=== PATIENT | male | born 1985 | race Caucasian/White ===

== ENCOUNTER 2021-02-13 19:37 | Emergency (ER) | payer BC ==
--- NOTE | 2021-02-13 19:40 | ED General ---
General Stated Complaint: LIGHTHEADED,DIARRHEA History of Present Illness Date Seen by Provider: Feb 13, 2021 Time Seen by Provider: 19:40 Initial Comments 36-year-old male presents because he thinks he might be dehydrated. Patient reports that every time he takes something and he has loose stools. Patient feels little lightheaded. Patient tested positive for Covid on 02/06/2021. He has had symptoms for about 9 or 10 days. Patient denies any fevers chills nausea vomiting shortness of breath or any other systemic complaints. Allergies and Home Medications Allergies Coded Allergies: No Known Drug Allergies (Unverified , 02/13/21) Patient Home Medication List Home Medication List Reviewed: Yes Review of Systems Review of Systems Constitutional: No chills, No fever Respiratory: No cough, No short of breath Cardiovascular: No chest pain, No palpitations Gastrointestinal: No abdominal pain; diarrhea; No nausea, No vomiting Musculoskeletal: no symptoms reported Skin: no symptoms reported Psychiatric/Neurological: See HPI Physical Exam Vital Signs Vital Signs - First Documented 02/13/21 19:45 Temp 36.7 Pulse 78 Resp 18 B/P (MAP) 138/82 (100) Pulse Ox 99 O2 Delivery Room Air Capillary Refill : Height, Weight, BMI Height: '" Weight: lbs. oz. kg; BMI Method: General Appearance: No Apparent Distress HEENT: PERRL/EOMI Neck: Normal Inspection, Non Tender Respiratory: Lungs Clear, Normal Breath Sounds Cardiovascular: Regular Rate, Rhythm, No Edema Gastrointestinal: Non Tender, Soft Extremity: Normal Capillary Refill, Normal Inspection, Normal Range of Motion Neurologic/Psychiatric: Alert, Oriented x3, No Motor/Sensory Deficits, Normal Mood/Affect, curtain hemmer automatic II-XII Norm as Tested Skin: Normal Color, Warm/Dry Progress/Results/Core Measures Suspected Sepsis SIRS Temperature: Pulse: Respiratory Rate: Laboratory Tests 02/13/21 19:52: White Blood Count 6.8 Blood Pressure / Mean: Laboratory Tests 02/13/21 19:52: Creatinine 0.79, Platelet Count 295, Total Bilirubin 0.7 Results/Orders Lab Results Laboratory Tests Test 02/13/21 19:52 Range/Units White Blood Count 6.8 4.3-11.0 10^3/uL Red Blood Count 5.68 H 4.30-5.52 10^6/uL Hemoglobin 17.0 13.3-17.7 g/dL Hematocrit 48 40-54 % Mean Corpuscular Volume 85 80-99 fL Mean Corpuscular Hemoglobin 30 25-34 pg Mean Corpuscular Hemoglobin Concent 35 32-36 g/dL Red Cell Distribution Width 12.4 10.0-14.5 % Platelet Count 295 130-400 10^3/uL Mean Platelet Volume 9.5 9.0-12.2 fL Immature Granulocyte % (Auto) 0 % Neutrophils (%) (Auto) 54 42-75 % Lymphocytes (%) (Auto) 34 12-44 % Monocytes (%) (Auto) 10 0-12 % Eosinophils (%) (Auto) 0 0-10 % Basophils (%) (Auto) 1 0-10 % Neutrophils # (Auto) 3.7 1.8-7.8 X 10^3 Lymphocytes # (Auto) 2.4 1.0-4.0 X 10^3 Monocytes # (Auto) 0.7 0.0-1.0 X 10^3 Eosinophils # (Auto) 0.0 0.0-0.3 10^3/uL Basophils # (Auto) 0.0 0.0-0.1 10^3/uL Immature Granulocyte # (Auto) 0.0 0.0-0.1 10^3/uL Sodium Level 138 135-145 MMOL/L Potassium Level 3.5 L 3.6-5.0 MMOL/L Chloride Level 102 98-107 MMOL/L Carbon Dioxide Level 22 21-32 MMOL/L Anion Gap 14 5-14 MMOL/L Blood Urea Nitrogen 12 7-18 MG/DL Creatinine 0.79 0.60-1.30 MG/DL Estimat Glomerular Filtration Rate 112 BUN/Creatinine Ratio 15 Glucose Level 123 H 70-105 MG/DL Calcium Level 9.0 8.5-10.1 MG/DL Corrected Calcium 8.5-10.1 MG/DL Total Bilirubin 0.7 0.1-1.0 MG/DL Aspartate Amino Transf (AST/SGOT) 33 5-34 U/L Alanine Aminotransferase (ALT/SGPT) 42 0-55 U/L Alkaline Phosphatase 60 40-136 U/L Total Protein 7.5 6.4-8.2 GM/DL Albumin 4.9 H 3.2-4.5 GM/DL Lipase 24 8-78 U/L My Orders Orders - WORLEY,JO L DO Cbc With Automated Diff (02/13/21 19:49) Comprehensive Metabolic Panel (02/13/21 19:49) Lipase (02/13/21 19:49) Lactated Ringers (Lr 1000 Ml Iv Solution (02/13/21 19:47) Ed Iv/Invasive Line Start (02/13/21 19:51) Lactated Ringers (Lr 1000 Ml Iv Solution (02/13/21 20:15) Vital Signs/I&O 02/13/21 19:45 Temp 36.7 Pulse 78 Resp 18 B/P (MAP) 138/82 (100) Pulse Ox 99 O2 Delivery Room Air Capillary Refill : Progress Note : Progress Note Patient feels significantly better following IV fluids. Patient with no acute findings on his labs. Patient stable and discharged home Departure Impression Primary Impression: COVID-19 Disposition: 01 HOME, SELF-CARE Condition: Stable Departure-Patient Inst. Patient Instructions: COVID-19 ED Add. Discharge Instructions: Drink plenty of fluids including Gatorade body armor or similar electrolyte replacement Ibuprofen or aspirin as needed for pain and fever JO WORLEY DO Feb 13, 2021 19:40
[2021-02-13] MEDS ORDERED: LACTATED RINGERS 1,000 ML IV ONE (19:47)
[2021-02-13 19:57] LABS: EOSINOPHILS % (AUTO) 0 % (0-10); HEMATOCRIT 48 % (40-54); LYMPHOCYTES % (AUTO) 34 % (12-44); MEAN CORPUSCULAR HEMOGLOBIN 30 pg (25-34); MEAN CORPUSCULAR HGB CONC 35 g/dL (32-36); MEAN CORPUSCULAR VOLUME 85 fL (80-99); MEAN PLATELET VOLUME 9.5 fL (9.0-12.2); MONOCYTES % (AUTO) 10 % (0-12); NEUTROPHILS % (AUTO) 54 % (42-75); PLATELET COUNT 295 10^3/uL (130-400); WHITE BLOOD COUNT 6.8 10^3/uL (4.3-11.0)
[2021-02-13 19:58] LABS: BASOPHILS % (AUTO) 1 % (0-10); LYMPHOCYTES # (AUTO) 2.4 X 10^3 (1.0-4.0); MONOCYTES # (AUTO) 0.7 X 10^3 (0.0-1.0); NEUTROPHILS # (AUTO) 3.7 X 10^3 (1.8-7.8)
[2021-02-13] MEDS ORDERED: LACTATED RINGERS 1,000 ML IV SCH (20:15)
[2021-02-13 20:16] LABS: ALKALINE PHOSPHATASE 60 U/L (40-136); BILIRUBIN,TOTAL 0.7 MG/DL (0.1-1.0); BUN/CREATININE RATIO 15; CARBON DIOXIDE 22 MMOL/L (21-32); CHLORIDE 102 MMOL/L (98-107); CREATININE SERUM 0.79 MG/DL (0.60-1.30); GFR ESTIMATED 112; GLUCOSE 123 MG/DL (70-105); POTASSIUM 3.5 MMOL/L (3.6-5.0); SODIUM 138 MMOL/L (135-145)
[2021-02-13 20:17] LABS: ALANINE AMINOTRANSFERASE 42 U/L (0-55); ALBUMIN 4.9 GM/DL (3.2-4.5); LIPASE 24 U/L (8-78); TOTAL PROTEIN 7.5 GM/DL (6.4-8.2)
[2021-02-13 20:35] VITALS: BP 140/79
== END 2021-02-13 20:36 | disposition home or self-care (01) ==
LOC: ER FS 19:43 → ER 20:36
DX: U07.1 COVID-19 (principal)
CPT/HCPCS: 36415; 80053; 83690; 85025